=== PATIENT | female | born 1945 | race Caucasian/White ===

== ENCOUNTER → 2016-07-09 | Day surgery (SDC) | payer MEDICARE ==
[2016-07-09] VITALS (16 sets, daily range): BP systolic 114–183; BP diastolic 45–104; PULSE 54–94; RESP 12–18; O2SAT 92–99
[~2016-07-09] VITALS: Ht 160 cm; Wt 91.8 kg
[~2016-07-09] MED LIST: 0.9% Sodium Chloride 1,000 ML ONE; AMLO10TA3 PO; ASPI-973 PO; ATOR40TA69 PO; AZEL137S11 NS; CHOL500011 PO; FLUT9.9S NS; Heparin 1,000 Unit/mL 10 mL Inj ONE; Heparin 1,000 Units/500 mL NS Premix IV ONE; Heparin 5,000 Units/500 mL NS Premix IV ONE; LISI-571 PO; MULT-1018 PO; Nitroglycerin 50,000 mcg/250 mL D5W Premix IV ONE; OMEG1CAP56 PO; OMEP20CA11 PO; fentaNYL-PF 50 mCg/mL 2 mL Inj ONE
[2016-07-09 07:12] LABS: BASOPHILS % (AUTO) 0.6 % (0-3); EOSINOPHILS % (AUTO) 3.2 % (0-5); MONOCYTES % (AUTO) 7.6 % (4-12); Mean Corpuscular Hemoglobin 28.5 pg (27.0-35.0); Mean Corpuscular Volume 89.8 fL (81-100); NEUTROPHILS % (AUTO) 70.2 % (40-74); Platelet Count 414 bil/L (150-400)
--- NOTE | 2016-07-09 07:23 | NUR ---
0630 ADMIT NOTE: Patient ambulates into department. She is alert and denies pain. She is visibly SOB and states this occurs with exertion as well as at rest. Her questions are answered. Consent previously signed. IV's X 2 started and labs drawn.
--- NOTE | 2016-07-09 10:09 | PCM.CVCATH ---
Cardiac Cath Report Date of Service Jul 09, 2016 Primary Indication Dyspnea on exertion, abnormal stress test Procedure coronary angiography, left heart cath Vascular Access Right radial artery using 6 Fr slender sheath. Artery very narrow and the procedure switched to groin. Closure of radial artery with TR band. Right femoral artery using 5 Fr sheath, closure with perclose. Diagnostic Catheters Left main: JL 4.0, 5 Fr RCA: JR 4.0, 5 Fr Procedure Details Coronary angiography details: The patient was brought to the cardiac catheterization lab in the fasting state. Patient was laid supine on the cardiac catheterization table and the right forearm and right groin were prepped and draped in the usual sterile fashion. One percent Xylocaine was infiltrated over the right radial artery. Vascular access was then achieved under ultrasound guidance. Guide wire was used to advance the catheter through the sheath but there was resistance. Angiography of the radial artery revealed a small caliber artery. Radial artery sheath was removed while the TR band was placed. Procedure was switched to right groin. One percent Xylocaine was infiltrated into the right femoral vessels. The first micropuncture stick was too high based on fluroscopy and was removed with the microwire. Hemostasis was achieved manually. The second micropuncture stick was below the top of the femoral head. Next, a sheath was then placed in the right common femoral artery by the modified Seldinger technique. Guide wire was used to advance the catheter through the sheath and up into aortic sinuses. After coronary angiography was completed, guide wire was advanced through the catheter ahead of the tip of the catheter and the guide wire along with the catheter were pulled together out of the sheath. Medications/Fluoro Time Medications administered: 1.Fentanyl: 150 mcg IV 2. Midazolam: 3 mg IV 3. Heparin: none Fluoroscopy Time: 3 minutes, 474 mGy Contrast (Isovue): 75 mls Blood loss: 10 mls Findings 1) Coronary angiography: Right dominance a. Left main is angiographically normal b. LAD is angiographically normal c. LCx is angiographically normal d. RCA is angiographically normal 2) Left Heart catheterization: a. LVEDP is elevated at 25 mmHg. b. No significant transaortic gradient on catheter pull-back. Complications There were no periprocedural complications identified. Summary 1) No angiographic coronary artery disease 2) Elevated left sided filling pressures Recommendations 1) Aggressive blood pressure control 2) Continue with primary prevention of coronary artery disease copies to: Rachel Horton MD, Bhrigu R MD Jul 09, 2016 10:09
--- NOTE | 2016-07-09 13:16 | NUR ---
TR Band DC'd at 1220 after 20 mins of deflation. Site is soft and dry. R groin remains soft and dry. She denies pain.
--- NOTE | 2016-07-09 13:35 | NUR ---
[facility] Care assumed at 1300. Right wrist without bleeding or hematoma. Radial pulse present. Right groin without bleeding or hematoma. Pedal pulse present. Patient denies pain. Finished eating and is sleeping at this time.
--- NOTE | 2016-07-09 15:57 | NUR ---
[facility] Patient OOB at 1515. Ambulate to bathroom. No bleeding or hematoma post ambulation at right groin or right wrist. Denies pain. Discharge instructions reviewed, written information given and questions answered. Home with sister at 1550.
== END | disposition home or self-care (01) ==
LOC: SOUO 06-23 00:51
PROVIDERS: ATTEND Internal Medicine Cardiovascular Disease
DX: R94.39 Abnormal result of other cardiovascular function study (principal); R06.09 Other forms of dyspnea; I10 Essential (primary) hypertension; E78.5 Hyperlipidemia, unspecified; E66.9 Obesity, unspecified; Z68.30 Body mass index [BMI] 30.0-30.9, adult; I51.7 Cardiomegaly; Z79.82 Long term (current) use of aspirin; K21.9 Gastro-esophageal reflux disease without esophagitis
CPT/HCPCS: 36415; 80048; 85025; 93005; 93458; 99152; 99153; C1760; C1769; C1894; J1644; J2250; J3010; Q9967